=== PATIENT | female | born 1970 | race Caucasian/White ===

== ENCOUNTER 2021-08-29 10:49 | Outpatient (CLI) | payer OTHER, SELFPAY ==
--- NOTE | ~2021-08-29 | MR_ITS ---
EXAMINATION: MR shoulder RT wo con DATE: 08/29/2021 11:38 INDICATION: Right shoulder pain . Lump at the posterior shoulder. TECHNIQUE: Magnetic resonance imaging (MRI) of the right shoulder was performed without intravenous c ontrast. Sequences included axial PD-weighted FS FSE, coronal oblique PD-weighted FS FSE, coronal obl ique T2-weighted FS FSE, sagittal PD-weighted FS FSE, and sagittal T1-weighted SE. COMPARISON: None. FINDINGS: Coracoacromial arch: The acromion undersurface is flat in morphology (type I). There is thickening of the coracoacromial l igament. Mild to moderate acromioclavicular osteoarthritis with small inferiorly directed osteophytes the lateral head of the clavicle. Rotator cuff: Mild supraspinatus tendinopathy without tear. The infraspinatus and teres minor tendons are normal. M ild subscapularis tendinopathy without discrete tear. Normal rotator cuff muscle bulk and signal. Biceps tendon, glenoid labrum and glenohumeral cartilage: Long head of the biceps tendon is normal. Glenoid labrum is normal. Mild nonuniform cartilage loss wi th smooth chondral surface at the cephalad third of the glenoid. Fluid: Physiologic amount of fluid in the glenohumeral joint and biceps tendon sheath. No loose osteochondr al bodies. No abnormal fluid signal in the subacromial/subdeltoid bursa to suggest bursitis. Bones/other: Normal marrow signal with no edema, fracture or pathologic marrow replacing process. No abnormal mass es identified. Specifically no abnormal masses, fluid collections or other lesions underlying the mar ker indicating the region of concern which is positioned over the posterior head of the deltoid muscl e. IMPRESSION: 1. Mild to moderate acromioclavicular and mild glenohumeral osteoarthritis. 2. Mild supraspinatus and subscapularis tendinopathy without discrete tear. Reviewed, dictated and finalized at location B.
== END 2021-08-29 10:50 ==
PROVIDERS: PCP Nurse Practitioner Family; Visit Provider Orthopaedic Surgery
DX: M19.011 Primary osteoarthritis, right shoulder (principal)
CPT/HCPCS: 73221